=== PATIENT | male | born 1950 ===

== ENCOUNTER 2016-08-10 00:27 | Emergency (ER) | payer SELFPAY ==
[~2016-08-10] VITALS: Ht 177.8 cm; Wt 152.0 kg
[2016-08-10] MEDS ORDERED: SODIUM CHLORIDE 250 ML IV PRN (00:55)
[2016-08-10] MEDS ORDERED: SODIUM CHLORIDE FLUSH 10 ML SYR IV PRN (00:55)
[2016-08-10] MEDS ORDERED: ASPIRIN 81 MG CHEW (LOW-DOSE) PO ONE (00:55)
[2016-08-10] MEDS ORDERED: SODIUM CHLORIDE FLUSH 3 ML SYR IV PRN (00:55)
[2016-08-10] MEDS ORDERED: NITROGLYCERIN SUBLINGUAL 0.4 MG (NITROQUICK) TABLET SL PRN (00:55)
--- NOTE | 2016-08-10 01:08 | NUR ---
pt reports history of rt knee replacement in 2014.
[2016-08-10 01:29] LABS: MEAN PLATELET VOLUME 10.4 FL (6.0-9.5); PLATELET COUNT 192 10^3uL (150-450); WHITE BLOOD COUNT 5.32 10^3uL (4.0-11.0)
[2016-08-10 01:37] LABS: MEAN CORPUSCULAR VOLUME 68 FL (80-100)
[2016-08-10 01:38] LABS: MEAN CORPUSCULAR HEMOGLOBIN 19.7 PG (26.0-34.0); MEAN CORPUSCULAR HGB CONC 29.1 g/dL (31.0-37.0)
[2016-08-10 01:39] LABS: ALBUMIN 3.7 g/dL (3.4-5.0); ALKALINE PHOSPHATASE 87 U/L (38-126); ANION GAP 14.9 MEQ/L (3-15); BUN/CREATININE RATIO 14 (10-20); CALCULATED IONIZED CALCIUM 3.8 mg/dL (3.8-4.6); CREATINE KINASE 55 U/L (55-170); MAGNESIUM* 1.8 mg/dL (1.6-2.3); TOTAL PROTEIN 6.8 g/dL (6.4-8.5)
--- NOTE | 2016-08-10 01:39 | NUR ---
PT REPORTS NO CHEST PAIN AFTER [address].
--- NOTE | 2016-08-10 01:40 | NUR ---
PT REQUESTING PAIN MEDICINE FOR RIGHT KNEE PAIN.
[2016-08-10] MEDS ORDERED: oxycODONE/ACETAMINOPHEN 10MG-325 MG (PERCOCET-10) TABLET PO ONE (01:50)
[2016-08-10 01:51] LABS: EOSINOPHILS % 4 % (0-4); LYMPHOCYTES # 1.3 #; MONOCYTES # 0.3 #; MONOCYTES % 6 % (3-11); RBC MORPH SEE REFERENCE (NORMAL); SEGMENTED NEUTROPHILS % 65 % (51-67); TOTAL CELLS COUNTED 100
[2016-08-10 01:52] LABS: ANISOCYTOSIS MODERATE; HYPOCHROMASIA MODERATE; MICROCYTOSIS MODERATE; POIKILOCYTOSIS MODERATE
--- NOTE | 2016-08-10 01:57 | NUR ---
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 PT MADE AWARE
[2016-08-10] MEDS ORDERED: HCT25T PO (02:04)
[2016-08-10] MEDS ORDERED: AMLO10TA82 PO (02:04)
[2016-08-10] MEDS ORDERED: CRV6.25T PO (02:04)
[2016-08-10] MEDS ORDERED: ATOR10TA56 PO (02:04)
[2016-08-10] MEDS ORDERED: BUSP15TA55 PO (02:04)
[2016-08-10] MEDS ORDERED: MELO-255 PO (02:04)
--- NOTE | 2016-08-10 02:37 | NUR ---
NOTIFIED LAB FOR REPEAT H/H DRAW
--- NOTE | 2016-08-10 03:33 | NUR ---
Pt refused rectal exam by MD cobb did agree to rectal temp by RN- with occult blood specimen collection by temp probe. Pt tolerated procedure well- occult blood card labeled and sent to lab.
[2016-08-10] MEDS ORDERED: oxyCODONE/ACETAMINOPHEN 5MG-325 MG (PERCOCET) TABLET PO ONE (04:10)
[2016-08-10 04:29] VITALS: BP 123/72
[2016-08-10] MEDS ORDERED: EZET10TA5 PO (04:56)
[2016-08-10] MEDS ORDERED: MNTL10T PO (04:56)
[2016-08-10] MEDS ORDERED: TRAZ-28 PO (04:56)
[2016-08-10] MEDS ORDERED: FLUT1DIS INH (04:56)
[2016-08-10] MEDS ORDERED: OMEP20CA12 PO (04:56)
[2016-08-10] MEDS ORDERED: SERT100T8 PO (04:56)
[2016-08-10] MEDS ORDERED: NEED1DIS XX (04:56)
[2016-08-10] MEDS ORDERED: INSU100I14 SQ (04:56)
--- NOTE | 2016-08-10 07:44 | Diagnostic Imaging Report ---
EXAMINATION: Right knee, 3 views. COMPARISON: Right knee radiographs July 10, 2016. INDICATION: 66-year-old male, knee pain. FINDINGS: There is a right total knee prosthesis. The hardware appears intact. There is no periprosthetic lucency. There is no identified acute fracture. There is no large knee joint effusion. IMPRESSION: 1. Intact right total knee prosthesis without identified complication or other acute bony abnormality. Dictated by: Dictated on workstation # [id number]
--- NOTE | 2016-08-10 07:46 | Diagnostic Imaging Report ---
EXAMINATION: Chest radiograph, portable AP view. DATE: August 10, 2016 at 0116 hours. INDICATION: 66-year-old male, chest pain. COMPARISON: August 09, 2016. FINDINGS: Stable overall appearance of the cardiomediastinal silhouette. There is no identified pneumothorax. There is no large pleural effusion. There are low lung volumes with associated central bronchovascular crowding. There is no identified focal airspace consolidation. IMPRESSION: Low lung volumes without identified acute cardiopulmonary abnormality. Dictated by: Dictated on workstation # [id number]
== END 2016-08-10 04:50 | disposition short-term general hospital (02) ==
LOC: ED 00:32
DX: R07.9 Chest pain, unspecified (principal); D64.9 Anemia, unspecified
CPT/HCPCS: 36415; 71010; 73562; 80053; 82550; 82553; 83735; 83880; 84484; 85014; 85018; 85025; 85610; 85730; 93005; 93010; 99285; 99291

== ENCOUNTER → 2016-08-10 | Outpatient (CLI) | payer SELFPAY ==
[~2016-08-10] MED LIST: AMLO10TA82 PO; ATOR10TA56 PO; BUSP15TA55 PO; CRV6.25T PO; EZET10TA5 PO; FLUT1DIS INH; HCT25T PO; INSU100I14 SQ; MELO-255 PO; MNTL10T PO; NEED1DIS XX; OMEP20CA12 PO; SERT100T8 PO; TRAZ-28 PO
== END ==
LOC: EMS 04:50
PROVIDERS: ATTEND Emergency Medicine
DX: R07.89 Other chest pain (principal)

== ENCOUNTER 2016-08-31 19:29 | Emergency (ER) | payer SELFPAY ==
[~2016-08-31] VITALS: Ht 177.8 cm; Wt 152.3 kg
[2016-08-31] MEDS ORDERED: ASPIRIN 81 MG CHEW (LOW-DOSE) PO ONE (20:25)
[2016-08-31] MEDS ORDERED: SODIUM CHLORIDE FLUSH 3 ML SYR IV PRN (20:25)
[2016-08-31] MEDS ORDERED: SODIUM CHLORIDE FLUSH 10 ML SYR IV PRN (20:25)
[2016-08-31 20:34] LABS: MEAN PLATELET VOLUME 10.2 FL (6.0-9.5); PLATELET COUNT 200 10^3uL (150-450); WHITE BLOOD COUNT 7.56 10^3uL (4.0-11.0)
[2016-08-31 20:47] LABS: MEAN CORPUSCULAR HEMOGLOBIN 18.9 PG (26.0-34.0); MEAN CORPUSCULAR HGB CONC 29.1 g/dL (31.0-37.0); MEAN CORPUSCULAR VOLUME 65 FL (80-100)
[2016-08-31 20:59] LABS: ANISOCYTOSIS MODERATE; EOSINOPHILS % 7 % (0-4); HYPOCHROMASIA MODERATE; LYMPHOCYTES # 1.1 #; MICROCYTOSIS MODERATE; MONOCYTES # 0.9 #; MONOCYTES % 13 % (3-11); POIKILOCYTOSIS SLIGHT; RBC MORPH SEE REFERENCE (NORMAL); SEGMENTED NEUTROPHILS % 65 % (51-67); TOTAL CELLS COUNTED 100
[2016-08-31 21:01] LABS: ALBUMIN 3.9 g/dL (3.4-5.0); ALKALINE PHOSPHATASE 103 U/L (38-126); ANION GAP 12.5 MEQ/L (3-15); BUN/CREATININE RATIO 19 (10-20); CALCULATED IONIZED CALCIUM 3.8 mg/dL (3.8-4.6); TOTAL PROTEIN 6.9 g/dL (6.4-8.5)
[2016-08-31] MEDS: NITROGLYCERIN SUBLINGUAL 0.4 MG (NITROQUICK) TABLET SL PRN ×2 (21:05→21:06)
--- NOTE | 2016-08-31 21:05 | Diagnostic Imaging Report ---
Indication: Chest pain. Discussion: Single upright AP view of the chest was obtained, comparison 08/30/2016. Cardiomegaly is stable. No evidence of cintia heart failure. No focal consolidation, pleural fluid or pneumothorax. No acute osseous abnormality. Impression: Cardiomegaly without failure. Dictated by: Dictated on workstation # [id number]
--- NOTE | 2016-08-31 21:27 | NUR ---
Pt is pain free after 2 nitro's, pt is resting reading the paper.
--- NOTE | 2016-08-31 21:40 | NUR ---
Pt's daughter came out and asked for some peanut butter and a cup of ice. Took these to the daughter, the pt asked what was going on, this RN explained that Dr Bojorquez is currently with a very critical pt and would be with him as as soon as possible, "well I'm about to lose it" RN reassured pt that Dr. Bojorquez would be in as soon as she can, that he is also important but the pt that the dr is with is critical. The daughter seemed to be understanding, then states that the peanut butter does not taste good, RN apologized for the bad peanut butter and for the wait.
[2016-08-31] MEDS ORDERED: oxycODONE/ACETAMINOPHEN 10MG-325 MG (PERCOCET-10) TABLET PO ONE (22:15)
[2016-08-31 23:09] VITALS: BP 159/77
--- NOTE | 2016-08-31 23:11 | NUR ---
pt iv on right forearm dc'd was infiltrated
--- NOTE | 2016-08-31 23:23 | NUR ---
Started a 20gauge to the right hand, good blood return and flushes easily
== END 2016-08-31 23:32 | disposition short-term general hospital (02) ==
LOC: ED 19:30
DX: J20.9 Acute bronchitis, unspecified (principal); R04.2 Hemoptysis; R53.1 Weakness
CPT/HCPCS: 36415; 71010; 80053; 83880; 84484; 85025; 93005; 93010; 99285

== ENCOUNTER → 2016-08-31 | Outpatient (CLI) | payer SELFPAY | LOC: EMS 23:20 | DX: R07.89 Other chest pain (principal) ==